=== PATIENT | female | born 1980 | race Caucasian/White ===

== ENCOUNTER 2016-11-10 16:50 | Emergency (ER) | payer BC ==
[~2016-11-10 16:50] MED LIST: K-DUR20 ME1; KEFLEX500 M1 PO; NO MEDICATIONS; NORFLEX100 M1 DOB; NYSTATIN15 GM OINT; NYSTATIN15 GM OINT EXT; TAMIFLU75 M1; VOLTAREN50 MG PO; VOLTAREN75 MG PO; ZOFRAN
== END 2016-11-10 17:21 | disposition left against medical advice (07) ==
LOC: SED 16:50
DX: Z53.21 Procedure and treatment not carried out due to patient leaving prior to being seen by health care provider (principal)